=== PATIENT | female | born 1945 | race Caucasian/White ===

== ENCOUNTER 2022-10-19 07:22 | Outpatient (OUT) | payer MEDICARE, OTHER, SELFPAY ==
[2022-10-19 08:12] LABS: Basophils Percent Auto 0.4 % (0.2-2.0); Eosinophils Absolute Auto 0.2 10^3/uL (0.0-0.7); Hematocrit 40.9 % (36.0-48.0); Hemoglobin 13.5 g/dL (12.0-16.0); Immature Granulocytes Abs Auto 0.02 10^3/uL (0.00-0.03); Immature Granulocytes Pct Auto 0.3 % (0.0-0.5); Lymphocytes Absolute Auto 1.3 10^3/uL (1.2-3.8); Lymphocytes Percent Auto 18.1 % (20.5-60.0); Mean Corpuscular Hemoglobin 32.4 pg (26.7-34.0); Mean Corpuscular Volume 98.1 fL (81.0-99.0); Mean Platelet Volume 9.7 fL (9.5-13.5); Monocytes Absolute Auto 0.7 10^3/uL (0.3-0.8); Monocytes Percent Auto 9.5 % (1.7-12.0); Neutrophils Absolute Auto 5.1 10^3/uL (1.4-6.5); Neutrophils Percent Auto 68.7 % (43.0-75.0); Platelet Count 166 10^3/uL (150-450); Red Blood Count 4.17 10^6/uL (4.20-5.40); Red Cell Distribution Width 14.1 % (11.0-15.0); White Blood Count 7.4 10^3/uL (4.0-11.0)
[2022-10-19 08:25] LABS: Alanine Aminotransferase 25 U/L (14-59); Albumin Globulin Ratio 0.9; Albumin Level 3.4 g/dL (3.4-5.0); Alkaline Phosphatase 49 U/L (46-116); Anion Gap 13.4; Aspartate Amino Transferase 26 U/L (15-37); BUN Creatinine Ratio 21.6; Bilirubin Total 1.4 mg/dL (0.2-1.0); Calcium 9.6 mg/dL (8.5-10.1); Carbon Dioxide 29.7 mmol/L (21.0-32.0); Chloride 103 mmol/L (98-107); Estimated GFR (African America 36 (>=60); Estimated GFR (Non-African Ame 30 (>=60); Globulin 3.7 g/dL; Glucose 97 mg/dL (74-106); Potassium 4.1 mmol/L (3.5-5.1); Sodium 142 mmol/L (136-145); Total Protein 7.1 g/dL (6.4-8.2)
[2022-10-19 08:29] LABS: Chol HDL Ratio 1.9; Cholesterol 139 mg/dL (<=200); Free Thyroxine Index 1.81 (1.30-4.50); HDL Cholesterol 73 mg/dL (40-60); Thyroid Stimulating Hormone 1.209 uIU/mL (0.358-3.740); Triglycerides 70 mg/dL (<=150)
[2022-10-19 08:36] LABS: Estimated Average Glucose 117 mg/dL; Glycohemoglobin A1C 5.7 % (4.5-6.2)
== END 2022-10-19 07:23 ==
LOC: LAB 07:29
PROVIDERS: PCP Family Medicine; Visit Provider Family Medicine
DX: E78.5 Hyperlipidemia, unspecified (principal); I12.9 Hypertensive chronic kidney disease with stage 1 through stage 4 chronic kidney disease, or unspecified chronic kidney disease; N18.30 Chronic kidney disease, stage 3 unspecified; G25.2 Other specified forms of tremor; I25.10 Atherosclerotic heart disease of native coronary artery without angina pectoris
CPT/HCPCS: 36415; 80053; 80061; 83036; 84436; 84443; 84479; 85025

== ENCOUNTER 2023-08-14 11:31 | Outpatient (OUT) | payer MEDICARE, OTHER, SELFPAY ==
--- NOTE | 2023-08-14 11:38 | XR_ITS ---
The [address] [address] Patient Name: DAMIAN ZUNIGA MRN: [id number] date: 1945 Sex: F Assigned Patient Location: [facility] Current Patient Location: RAD Accession/Order Number: [id number] Exam Date: 08/14/2023 11:40 Report Date: 08/14/2023 13:16 At the request of: HUAN OCAMPO Procedure: XR chest 2V EXAM: XR chest 2V HISTORY: sensation of chest tightness R07.89, shortness of breath COMPARISON: None. TECHNIQUE: PA and lateral views of the chest. FINDINGS: The cardiomediastinal silhouette is normal. Right lower lobe airspace disease. There is no pneumothorax. No pleural effusion is noted. The osseous structures are intact. XR/XR chest 2V IMPRESSION: Right lower lobe pneumonia. Electronically authenticated by: KARINE BOLES Date: 08/14/2023 13:16
== END 2023-08-14 11:32 | disposition home or self-care (01) ==
LOC: RAD 11:33
PROVIDERS: PCP Nurse Practitioner Family; Visit Provider Nurse Practitioner Family
DX: R07.89 Other chest pain (principal); R06.02 Shortness of breath; R05.3 Chronic cough; J18.9 Pneumonia, unspecified organism
CPT/HCPCS: 71046

== ENCOUNTER 2023-08-31 11:46 | Outpatient (OUT) | payer MEDICARE, OTHER, SELFPAY ==
--- NOTE | 2023-08-31 12:08 | XR_ITS ---
The [address] [address] Patient Name: DAMIAN ZUNIGA MRN: [id number] date: 1945 Sex: F Assigned Patient Location: [facility] Current Patient Location: Accession/Order Number: [id number] Exam Date: 08/31/2023 12:00 Report Date: 09/02/2023 05:22 At the request of: DEBBIE CASTELLANOS Procedure: XR chest 2V EXAMINATION: XR chest 2V HISTORY: Community Acquired Pneumonia Of Right Lower Lobe Lung ; follow-up COMPARISON: XR chest 08/14/2023 FINDINGS: LUNGS: Dense opacities obscuring the lower half of the right hemithorax. Left lung is clear. VASCULATURE: No increased pulmonary vasculature. PLEURA: No pneumothorax, effusion, or pleural thickening. CARDIAC: No cardiomegaly or cardiac silhouette abnormality. MEDIASTINUM: No visible mass or adenopathy. BONES: No fracture or visible bone lesion. OTHER: Negative. XR/XR chest 2V IMPRESSION: 1. Marked opacities within right lung base suspected to represent pneumonia; increased compared to prior study. Follow-up chest x-ray to document complete clearing is recommended. If findings persist consider CT chest to exclude a mass. Electronically authenticated by: CINDY BADILLO Date: 09/02/2023 05:22
== END 2023-08-31 11:47 | disposition home or self-care (01) ==
LOC: RAD 11:48
PROVIDERS: PCP Family Medicine; Visit Provider Family Medicine
DX: J18.9 Pneumonia, unspecified organism (principal)
CPT/HCPCS: 71046